=== PATIENT | female | born 1945 | race Caucasian/White ===

== ENCOUNTER 2017-08-16 03:42 | Outpatient (CLI) | payer OTHER ==
[~2017-08-16 03:42] MED LIST: ASPI-611 PO; BIOT1TAB PO; CALC-1051 PO; CHOL2000 PO; INSU100C10; INSU200I4 SQ; LANS15CA10 PO; LEVO150T PO; LOSA100T28 PO; OCUVITE PO; OMEG-86 PO; ROSU5TAB18 PO; URSO300C2 PO; VITA-268 PO
== END 2017-08-16 23:59 | disposition home or self-care (01) ==
LOC: DIABETIC 03:42
PROVIDERS: ATTEND Family Medicine
DX: E10.9 Type 1 diabetes mellitus without complications (principal); I10 Essential (primary) hypertension
CPT/HCPCS: G0108

== ENCOUNTER 2017-08-17 11:10 | Outpatient (CLI) | payer OTHER, MEDICARE ==
[2017-08-17] VITALS (21 sets, daily range): BP systolic 136–164; BP diastolic 69–89
== END 2017-08-17 23:59 | disposition home or self-care (01) ==
LOC: CARD DIAG 11:10
PROVIDERS: ATTEND Internal Medicine Cardiovascular Disease
DX: R55 Syncope and collapse (principal)
CPT/HCPCS: 93660

== ENCOUNTER 2017-11-15 08:26 | Outpatient (CLI) | payer MEDICARE ==
[~2017-11-15 08:26] MED LIST changes: +ROSU5TAB11 PO; -ROSU5TAB18 PO
== END 2017-11-15 23:59 | disposition home or self-care (01) ==
LOC: DIABETIC 08:26
PROVIDERS: ATTEND Family Medicine
DX: E10.9 Type 1 diabetes mellitus without complications (principal); I10 Essential (primary) hypertension
CPT/HCPCS: G0108

== ENCOUNTER 2018-03-07 00:21 | Outpatient (CLI) | payer OTHER, MEDICARE ==
[~2018-03-07 00:21] MED LIST changes: +LOSA100T15 PO; -LOSA100T28 PO
== END 2018-03-07 23:59 | disposition home or self-care (01) ==
LOC: DIABETIC 00:21
PROVIDERS: ATTEND Family Medicine
DX: E10.9 Type 1 diabetes mellitus without complications (principal); I10 Essential (primary) hypertension; Z79.82 Long term (current) use of aspirin; Z88.0 Allergy status to penicillin; Z88.1 Allergy status to other antibiotic agents; Z90.710 Acquired absence of both cervix and uterus; Z90.89 Acquired absence of other organs
CPT/HCPCS: G0108

== ENCOUNTER 2019-08-21 10:12 | Inpatient (IN) | payer OTHER, MEDICARE ==
[~2019-08-21] VITALS: Ht 172.7 cm; Wt 97.3 kg
[~2019-08-21 10:12] MED LIST changes: -INSU100C10; +INSU100C10 SQ; -LOSA100T15 PO; +LOSA100T57 PO; -ROSU5TAB11 PO; +ROSU5TAB12 PO
[2019-08-21 10:33] LABS: BASOPHILS # (AUTO) 0.1 X10'3 (0-0.2); BASOPHILS % (AUTO) 0.9 % (0-1); EOSINOPHILS # (AUTO) 0.2 X10'3 (0-0.9); EOSINOPHILS % (AUTO) 1.8 % (0-6); HEMATOCRIT 29.2 % (35.0-45.0); HEMOGLOBIN 10.2 g/dl (12.0-16.0); LYMPHOCYTES # (AUTO) 1.1 X10'3 (1.1-4.8); LYMPHOCYTES % (AUTO) 10.2 % (21-51); MEAN CORPUSCULAR HEMOGLOBIN 32.2 PG (27.0-31.0); MEAN CORPUSCULAR VOLUME 91.9 FL (78-98); MEAN PLATELET VOLUME 7.6 FL (7.4-10.4); MONOCYTES # (AUTO) 0.6 X10'3 (0-0.9); MONOCYTES % (AUTO) 5.7 % (2-12); NEUTROPHILS # (AUTO) 8.6 X10'3 (1.8-7.7); NEUTROPHILS % (AUTO) 81.4 % (42-75); PLATELET COUNT 336 X10'3 (140-440); RED BLOOD COUNT 3.17 X10'6 (4.20-5.60); RED CELL DISTRIBUTION WIDTH 13.8 % (11.5-14.5); WHITE BLOOD COUNT 10.6 X10'3 (4.5-11.0)
[2019-08-21 10:45] LABS: ALANINE AMINOTRANSFERASE 54 U/L (12-78); ALBUMIN 2.9 G/DL (3.4-5.0); ALBUMIN/GLOBULIN RATIO 0.7 (1.1-1.5); ALKALINE PHOSPHATASE 540 IU/L (46-116); ANION GAP 13 (8-16); ASPARTATE AMINO TRANSFERASE 61 U/L (10-37); BLOOD UREA NITROGEN 30 MG/DL (7-18); BUN/CREATININE RATIO 18.1 (6.6-38.0); CALCIUM 9.2 MG/DL (8.5-10.1); CHLORIDE 96 MMOL/L (99-107); CREATININE 1.66 MG/DL (0.40-0.90); GLUCOSE 163 MG/DL (70-104); SODIUM 131 MMOL/L (135-145); TOTAL CARBON DIOXIDE 21.9 MMOL/L (24-32); TOTAL PROTEIN 7.2 G/DL (6.4-8.2); eGFR 30 ML/MIN
[2019-08-21] MEDS ORDERED: morphine 4 MG/ML inj SYRINge IM ONE (11:55)
[2019-08-21] MEDS ORDERED: ondansetron 4mg rapidly disintigrating tab PO ONE (11:55)
[2019-08-21] MEDS ORDERED: aspirin 325mg tablet PO ONE (11:55)
[2019-08-21] MEDS ORDERED: ondansetron/PF 4mg/2ml inj IV ONE (12:05)
[2019-08-21] MEDS ORDERED: morphine 4 MG/ML inj SYRINge IV ONE (12:05)
[2019-08-21 12:35] LABS: LIPASE 219 U/L (73-393)
[2019-08-21] MEDS ORDERED: INSU300I3 SQ (13:34)
[2019-08-21] MEDS ORDERED: METO25TA6 PO (13:34)
[2019-08-21] MEDS ORDERED: MULT-227 PO (13:34)
[2019-08-21] MEDS ORDERED: HYDR-4070 PO (13:34)
[2019-08-21] MEDS ORDERED: OMEP20CA15 PO (13:34)
[2019-08-21] MEDS ORDERED: LEVO137T2 PO (13:34)
[2019-08-21] MEDS ORDERED: metoprolol tartrate 1mg/ml inj IV PRN (13:50)
[2019-08-21] MEDS ORDERED: MESSAGE TO PHARMACY PO ONE (13:50)
[2019-08-21] MEDS ORDERED: potassium CL 10mEq/100ml bag 100 ML IV PRN ×2 (13:50)
[2019-08-21] MEDS ORDERED: dextrose 50%-water 50ml dispensing syringe IV PRN ×2 (13:50)
[2019-08-21] MEDS ORDERED: morphine 2 MG/ML inj. syringe IV PRN (13:50)
[2019-08-21] MEDS ORDERED: magnesium 2GM in 50ml NS 50 ML IV PRN (13:50)
[2019-08-21] MEDS ORDERED: regadenoson 0.4mg/5ml syringe IV PRN (13:50)
[2019-08-21] MEDS ORDERED: magnesium Cl slow-release 64mg tablet PO PRN (13:50)
[2019-08-21] MEDS ORDERED: glucagon, human recombinant 1mg kit SUBCUT PRN (13:50)
[2019-08-21] MEDS ORDERED: insulin Lispro (HumaLOG) vial - multi-dose SQ SCH (13:50)
[2019-08-21] MEDS ORDERED: acetaminophen 325mg tablet PO PRN ×2 (13:50)
[2019-08-21] MEDS ORDERED: potassium Cl 20 mEq SR tablet PO PRN ×2 (13:50)
[2019-08-21] MEDS ORDERED: ondansetron/PF 4mg/2ml inj IV PRN (13:50)
[2019-08-21] MEDS ORDERED: aminophylline 250mg/10ml inj. IV PRN (13:50)
[2019-08-21] MEDS ORDERED: nitroGLYCERIN 0.4mg SUBLingual tab SL PRN (13:50)
[2019-08-21] MEDS ORDERED: HYDROcodone/acetaminophen 5mg/325mg tablet PO PRN (13:50)
[2019-08-21] MEDS ORDERED: dextrose ORAL solution 15 GM/59 ML bottle PO PRN ×2 (13:50)
[2019-08-21] MEDS ORDERED: magnesium 4gm in 100ml NS 100 ML IV PRN (13:50)
[2019-08-21] MEDS: normal saline 1000ml 1,000 ML IV SCH (14:34)
--- NOTE | 2019-08-21 17:27 | NUR ---
pt to be transferred to [facility], report called to ERICA Li for continuation of care.
[2019-08-21] MEDS: hydrALAZINE 25 MG tablet PO SCH ×2 (17:37→21:07)
[2019-08-21 18:00] VITALS: BP 135/43
--- NOTE | 2019-08-21 18:40 | NUR ---
Patient in room MED 314. I have received report from Alivia MALDONADO and had the opportunity to ask questions and assume patient care.
--- NOTE | 2019-08-21 18:55 | NUR ---
Problems reprioritized. Patient report given, questions answered & plan of care reviewed with ERICA Graham.
[2019-08-21] MEDS ORDERED: levoFLOXACIN-Levaquin 500mg/D5 100 ML IV ONE (19:05)
[2019-08-21] MEDS: K and/or MAG REPLACEMENT MC SCH (20:00)
[2019-08-21] MEDS ORDERED: aspirin 81mg tablet.DR PO SCH (21:00)
[2019-08-21] MEDS ORDERED: pantoprazole 40mg Tablet.DR PO SCH (21:00)
[2019-08-21] MEDS ORDERED: insulin glargine (Lantus) pen - multi-dose SQ SCH (21:00)
[2019-08-21] MEDS ORDERED: atorvastatin 20mg tablet PO SCH (21:00)
[2019-08-21] MEDS ORDERED: temazepam 15mg capsule PO PRN (21:00)
[2019-08-21] MEDS: docusate sod 100mg capsule PO SCH (21:08)
[2019-08-21] MEDS: metoprolol tartrate 25mg tablet PO SCH (21:09)
[2019-08-21] MEDS: heparin, porcine 5000 units/ml vial SQ SCH (21:09)
[2019-08-21 22:00] VITALS: BP 126/50
[2019-08-21] MEDS: Ursodiol 300mg capsule PO SCH (22:36)
[2019-08-22] VITALS (11 sets, daily range): BP systolic 104–138; BP diastolic 41–65
[2019-08-22 06:23] LABS: BASOPHILS # (AUTO) 0.1 X10'3 (0-0.2); BASOPHILS % (AUTO) 0.6 % (0-1); EOSINOPHILS % (AUTO) 0.3 % (0-6); HEMATOCRIT 25.2 % (35.0-45.0); LYMPHOCYTES # (AUTO) 1.8 X10'3 (1.1-4.8); LYMPHOCYTES % (AUTO) 15.5 % (21-51); MEAN CORPUSCULAR HGB CONC 35.7 g/dL (33.0-36.5); MEAN CORPUSCULAR VOLUME 92.4 FL (78-98); MONOCYTES # (AUTO) 1.1 X10'3 (0-0.9); MONOCYTES % (AUTO) 9.9 % (2-12); NEUTROPHILS # (AUTO) 8.3 X10'3 (1.8-7.7); NEUTROPHILS % (AUTO) 73.7 % (42-75); PLATELET COUNT 275 X10'3 (140-440); RED BLOOD COUNT 2.72 X10'6 (4.20-5.60); RED CELL DISTRIBUTION WIDTH 13.9 % (11.5-14.5); WHITE BLOOD COUNT 11.3 X10'3 (4.5-11.0)
--- NOTE | 2019-08-22 06:37 | NUR ---
Problems reprioritized. Patient report given, questions answered & plan of care reviewed with Opal MALDONADO.
[2019-08-22 06:53] LABS: ALANINE AMINOTRANSFERASE 42 U/L (12-78); ALBUMIN 2.3 G/DL (3.4-5.0); ALBUMIN/GLOBULIN RATIO 0.6 (1.1-1.5); ALKALINE PHOSPHATASE 422 IU/L (46-116); ANION GAP 12 (8-16); ASPARTATE AMINO TRANSFERASE 49 U/L (10-37); BILIRUBIN,TOTAL 3.4 MG/DL (0.1-1.0); BLOOD UREA NITROGEN 43 MG/DL (7-18); BUN/CREATININE RATIO 18.4 (6.6-38.0); CALCIUM 8.5 MG/DL (8.5-10.1); CHLORIDE 96 MMOL/L (99-107); CHOL/HDL RATIO 6.4 (0.00-4.99); CHOLESTEROL 159 MG/DL (0-200); CREATININE 2.34 MG/DL (0.40-0.90); GLUCOSE 295 MG/DL (70-104); HDL CHOLESTEROL 25 MG/DL (35-60); LDL CHOLESTEROL 85 MG/DL (50-100); MAGNESIUM 1.7 MG/DL (1.5-2.4); POTASSIUM 4.9 MMOL/L (3.5-5.1); SODIUM 127 MMOL/L (135-145); TOTAL CARBON DIOXIDE 18.9 MMOL/L (24-32); TOTAL PROTEIN 6.3 G/DL (6.4-8.2); TRIGLYCERIDES 54 MG/DL (20-135); eGFR 20 ML/MIN
[2019-08-22] MEDS ORDERED: levoTHYROXINE 25mcg tablet PO SCH (07:00)
[2019-08-22] MEDS ORDERED: levoTHYROXINE 112mcg tablet PO SCH (07:00)
--- NOTE | 2019-08-22 07:37 | NUR ---
Patient in room MED 314. I have received report from ERICA Graham and had the opportunity to ask questions and assume patient care.
[2019-08-22] MEDS: hydrALAZINE 25 MG tablet PO SCH ×2 (08:00→13:00)
[2019-08-22] MEDS ORDERED: losartan 50mg tablet PO SCH (08:00)
[2019-08-22] MEDS: metoprolol tartrate 25mg tablet PO SCH (08:00)
--- NOTE | 2019-08-22 08:00 | NUR ---
ha=[id number].metprolol held pending lexiscan,hydralazine and cozaar held as well, aware
[2019-08-22] MEDS: normal saline 1000ml 1,000 ML IV SCH (08:10)
[2019-08-22] MEDS: docusate sod 100mg capsule PO SCH (08:13)
[2019-08-22] MEDS: Ursodiol 300mg capsule PO SCH (08:14)
[2019-08-22] MEDS: heparin, porcine 5000 units/ml vial SQ SCH (08:21)
[2019-08-22] MEDS: K and/or MAG REPLACEMENT MC SCH (08:22)
--- NOTE | 2019-08-22 13:17 | NUR ---
DR. SHAH PAGED: PAGER ID: [phone] MESSAGE: [phone]: KAVITA MALDONADO NEGATIVE :D. ?ok to feed pt? nurse jonathon [phone]
--- NOTE | 2019-08-22 13:32 | NUR ---
DM Consult: Pt A1C 7.6 hx T2DM but insulin dependent per EMR and seen by RD for written/verbal DM ed w/ RD contact information provided. Pt reports taking long-acting solostar in AM and uses sliding scale humalog TID w/ meals. Pt reports checking routine BG and never runs out of insulin. Pt s/p lexiscan which was negative per RN. RD encouraged pt to attend CDE course or contact RD if further questions/concerns. Will continue to monitor. Addendum: 08/22/19 at [address] Amended: Links added.
[2019-08-22] MEDS ORDERED: SODI650T29 PO (14:04)
--- NOTE | 2019-08-22 15:32 | NUR ---
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
== END 2019-08-22 15:50 | disposition home or self-care (01) | DRG 392 ==
LOC: ER 10:13 → ED HOLD 13:49 → MED 3N 17:50
PROVIDERS: ADMIT Internal Medicine; ATTEND Family Medicine
PROC: 4A02XM4 Measurement of Cardiac Total Activity, External Approach (ICD-10-PCS; principal; 2019-08-22)
PROC: 3E033HZ Introduction of Radioactive Substance into Peripheral Vein, Percutaneous Approach (ICD-10-PCS; 2019-08-22)
DX: K21.9 Gastro-esophageal reflux disease without esophagitis (principal); E87.1 Hypo-osmolality and hyponatremia; J98.11 Atelectasis; E11.22 Type 2 diabetes mellitus with diabetic chronic kidney disease; E11.65 Type 2 diabetes mellitus with hyperglycemia; I25.10 Atherosclerotic heart disease of native coronary artery without angina pectoris; N18.3 Chronic kidney disease, stage 3 (moderate); I12.9 Hypertensive chronic kidney disease with stage 1 through stage 4 chronic kidney disease, or unspecified chronic kidney disease; I95.9 Hypotension, unspecified; R09.89 Other specified symptoms and signs involving the circulatory and respiratory systems; Z88.0 Allergy status to penicillin; Z88.8 Allergy status to other drugs, medicaments and biological substances; Z82.49 Family history of ischemic heart disease and other diseases of the circulatory system
CPT/HCPCS: 36415; 71045; 71046; 78452; 80053; 80061; 82948; 83036; 83690; 83735; 84484; 85025; 87081; 93005; 93017; 93306; 96374; 96375; 99285; A9500; G0378; J1644; J1815; J1956; J2270; J2405; J2785; J7030

== ENCOUNTER 2019-10-24 08:05 | Day surgery (SDC) | payer OTHER, MEDICARE ==
[~2019-10-24] VITALS: Ht 172.7 cm; Wt 98.3 kg
[~2019-10-24 08:05] MED LIST changes: -BIOT1TAB PO; -CALC-1051 PO; -INSU200I4 SQ; +INSU300I3 SQ; -LANS15CA10 PO; +LEVO137T2 PO; -LEVO150T PO; -LOSA100T57 PO; +METO25TA6 PO; +MULT-227 PO; -OCUVITE PO; -OMEG-86 PO; +OMEP20CA15 PO; +SODI650T29 PO
[2019-10-24] MEDS ORDERED: LANS15CA10 PO (08:37)
[2019-10-24 08:41] VITALS: BP 186/84
[2019-10-24 09:45] VITALS: BP 158/66
[2019-10-24 10:00] VITALS: BP 189/84
[2019-10-24 10:15] VITALS: BP 185/84
[2019-10-24 10:30] VITALS: BP 188/87
== END 2019-10-24 10:40 | disposition home or self-care (01) ==
LOC: SSTAY O 08:05 → MED 3N 08:10 → SSTAY O 10:40
PROVIDERS: ATTEND Radiology Vascular & Interventional Radiology
DX: J90 Pleural effusion, not elsewhere classified (principal); I25.10 Atherosclerotic heart disease of native coronary artery without angina pectoris; E78.5 Hyperlipidemia, unspecified; E11.22 Type 2 diabetes mellitus with diabetic chronic kidney disease; I12.9 Hypertensive chronic kidney disease with stage 1 through stage 4 chronic kidney disease, or unspecified chronic kidney disease; N18.9 Chronic kidney disease, unspecified; Z90.710 Acquired absence of both cervix and uterus; Z98.890 Other specified postprocedural states; Z98.1 Arthrodesis status; Z88.0 Allergy status to penicillin; Z91.09 Other allergy status, other than to drugs and biological substances; Z88.1 Allergy status to other antibiotic agents; Z79.899 Other long term (current) drug therapy; Z79.4 Long term (current) use of insulin; Z82.49 Family history of ischemic heart disease and other diseases of the circulatory system
CPT/HCPCS: 32555; 71045; C1729